=== PATIENT | male | born 1980 | race Caucasian/White ===

== ENCOUNTER 2024-02-04 22:48 | Emergency (ER) | payer MEDICAID ==
[~2024-02-04] VITALS: Ht 188 cm; Wt 107.7 kg
[2024-02-05 00:08] LABS: BASOPHILS % (AUTO) 0.5 % (0-1); EOSINOPHILS # (AUTO) 0.1 X10'3 (0-0.9); EOSINOPHILS % (AUTO) 0.8 % (0-6); HEMATOCRIT 43.9 % (42.0-52.0); HEMOGLOBIN 14.9 g/dl (14.0-17.9); LYMPHOCYTES # (AUTO) 1.9 X10'3 (1.1-4.8); LYMPHOCYTES % (AUTO) 24.9 % (21-51); MEAN CORPUSCULAR HEMOGLOBIN 32.6 PG (27.0-31.0); MEAN CORPUSCULAR VOLUME 95.7 FL (78-98); MEAN PLATELET VOLUME 9.1 FL (7.4-10.4); MONOCYTES # (AUTO) 0.5 X10'3 (0-0.9); MONOCYTES % (AUTO) 6.7 % (2-12); NEUTROPHILS # (AUTO) 5.1 X10'3 (1.8-7.7); NEUTROPHILS % (AUTO) 67.1 % (42-75); PLATELET COUNT 182 X10'3 (140-440); RED BLOOD COUNT 4.59 X10'6 (4.70-6.10); RED CELL DISTRIBUTION WIDTH 12.8 % (11.5-14.5); WHITE BLOOD COUNT 7.6 X10'3 (4.5-11.0)
[2024-02-05 00:10] LABS: ALANINE AMINOTRANSFERASE 41 U/L (12-78); ALBUMIN 3.9 G/DL (3.4-5.0); ALBUMIN/GLOBULIN RATIO 1.1 (1.1-1.5); ALKALINE PHOSPHATASE 51 IU/L (46-116); ANION GAP 11 (8-16); ASPARTATE AMINO TRANSFERASE 18 U/L (10-37); BILIRUBIN,TOTAL 0.8 MG/DL (0.1-1.0); BLOOD UREA NITROGEN 15 MG/DL (7-18); BUN/CREATININE RATIO 17.2 (10.0-20.0); CALCIUM 9.1 MG/DL (8.5-10.1); CHLORIDE 106 MMOL/L (99-107); CREATININE 0.87 MG/DL (0.60-1.10); GLUCOSE 129 MG/DL (70-104); LIPASE 43 U/L (16-77); POTASSIUM 3.4 MMOL/L (3.5-5.1); SODIUM 143 MMOL/L (135-145); TOTAL CARBON DIOXIDE 26.2 MMOL/L (24-32); TOTAL PROTEIN 7.3 G/DL (6.4-8.2); eCRCL 125 ML/MIN; eGFR > 90 ML/MIN
[2024-02-05] MEDS ORDERED: NO HOME MEDS (01:00)
[2024-02-05] MEDS: ketorolac trometh 15mg/ml vial 15 MG/ML ML IV ONE (01:33)
[2024-02-05] MEDS: ondansetron/PF 4mg/2ml inj IV ONE (01:36)
[2024-02-05] MEDS: normal saline 1000ml 1,000 ML IV ONE (01:40)
[2024-02-05 02:11] VITALS: BP_DIAS 85; RESP 18
[2024-02-05] MEDS ORDERED: ONDA-245 PO (03:28)
[2024-02-05] MEDS ORDERED: HYDR-3965 PO (03:28)
[2024-02-05 03:51] VITALS: BP_SYST 16; PULSE 85; TEMP 98.6; O2SAT 98
== END 2024-02-05 03:54 | disposition home or self-care (01) ==
LOC: ER 22:49
DX: R10.11 Right upper quadrant pain (principal); R11.10 Vomiting, unspecified
CPT/HCPCS: 36415; 76705; 80053; 83690; 85025; 96361; 96374; 96375; 99285; J1885; J2405; J7030